=== PATIENT | female | born 1935 | race Caucasian/White ===

== ENCOUNTER 2017-02-02 15:16 | Emergency (ER) | payer MEDICARE | END 2017-02-02 23:20 | disposition home or self-care (01) | LOC: D.ER 15:16 | DX: S01.81XA Laceration without foreign body of other part of head, initial encounter (principal); W01.0XXA Fall on same level from slipping, tripping and stumbling without subsequent striking against object, initial encounter; Y93.89 Activity, other specified; Y92.129 Unspecified place in nursing home as the place of occurrence of the external cause; S63.91XA Sprain of unspecified part of right wrist and hand, initial encounter; S16.1XXA Strain of muscle, fascia and tendon at neck level, initial encounter; E03.9 Hypothyroidism, unspecified; F43.9 Reaction to severe stress, unspecified; F32.9 Major depressive disorder, single episode, unspecified; F41.9 Anxiety disorder, unspecified ==

== ENCOUNTER 2017-02-07 13:08 | Emergency (ER) | payer MEDICARE | END 2017-02-07 15:02 | disposition home or self-care (01) | LOC: D.ER 13:08 | DX: M25.462 Effusion, left knee (principal); W19.XXXA Unspecified fall, initial encounter; Y93.89 Activity, other specified; Y92.129 Unspecified place in nursing home as the place of occurrence of the external cause; F41.9 Anxiety disorder, unspecified; F32.9 Major depressive disorder, single episode, unspecified; E03.9 Hypothyroidism, unspecified; F43.9 Reaction to severe stress, unspecified ==

== ENCOUNTER → 2017-02-10 15:43 | Outpatient (CLI) | payer MEDICARE | END | disposition home or self-care (01) | LOC: D.RAD 15:43 | DX: M79.605 Pain in left leg (principal); W19.XXXD Unspecified fall, subsequent encounter ==

== ENCOUNTER 2017-10-30 12:35 | Inpatient (IN) | payer MEDICARE ==
[~2017-10-30] VITALS: Ht 160 cm; Wt 52.3 kg
--- NOTE | ~2017-10-30 | OP ---
PATIENT NAME: ALEKSANDRA REYES MEDICAL RECORD: [id number] :35 LOCATION:[id number] ADMISSION DATE:10/30/17 SURGEON: SIRENA ARELLANO MD DATE OF OPERATION: 11/03/2017 PREOPERATIVE DIAGNOSIS: Fracture, comminuted, right patella. POSTOPERATIVE DIAGNOSIS: Fracture, comminuted, right patella. PROCEDURE: Right patellectomy. SURGEON: Sirena Arellano MD ANESTHESIA: General. INTRAOPERATIVE COMPLICATIONS: Essentially none. SUMMARY OF PATHOLOGIC FINDINGS: The patient had a multi-fragmented osteoporotic patella with 3 screws already in it that had broken through and caused significant damage. Reapproximation of this patella was not possible given the patient's osteoporosis and this is the third time she has fractured it. Decision was made to proceed with patellectomy rather than try to repair this very fragile patella in this 82-year-old patient. OPERATIVE SUMMARY IN DETAIL: After obtaining the appropriate preoperative orthopedic surgery consent as well as anesthetic consultation, evaluation and clearance, the patient was brought to the operating room and placed on the operating table in supine position. After general laryngeal mask was administered, tourniquet was placed on the proximal aspect of the right lower extremity. Right lower extremity was then prepped and draped in routine sterile fashion. The leg was elevated and exsanguinated, and tourniquet was inflated to 350 mmHg. Routine midline incision was used again. This was taken down to the level of the patella. The fragments were by approximately 2 cm with split fragments both top and bottom. Initial attempts at trying to clean out the interposed soft tissue resulted in more fragmentation. At this point, the decision was made to proceed with a patellectomy. The patella was completely excised using a Bovie maintaining as much of the quadriceps tendon and surrounding patellar periosteum. The inferior patella was taken out as well as the superior patella and multiple fragments were taken out and removed and sent to pathology for gross only. These were also sent with the previously placed screws were in there. All previously placed FiberWire that was in there was also taken out. At this point, the knee was irrigated and the quadriceps tendon to the patellar tendon were closed using #2 FiberWire. At one point, a modified Meza loop was used to reapproximate the inferior to the superior. The knee was flexed to be sure that the construct would hold tight as it did. Having completed this, the skin was closed with 0 Vicryl followed by skin giovanni. Sterile dressings were applied. Tourniquet was deflated. The patient was awakened and taken to the recovery room in stable condition. All final needle and sponge counts were correct. TRANSINT:[id number] Voice Confirmation ID: [id number] DOCUMENT ID: [id number] OPERATIVE REPORT [id number] ALEKSANDRA REYES MD, SIRENA CABELLO at 1751 CC: [id number] DICTATION DATE: 11/03/17 1417 NURSE FIRST ASSIST: 11/03/17 1625 ADM IN [facility] [address] [id number]
[2017-10-30 15:56] LABS: BASOPHILS 0.2 % (0-2); EOSINOPHILS 1.8 % (0-7); HEMATOCRIT 37.8 % (36.0-48.0); HEMOGLOBIN 11.8 g/dL (12-16); IMMATURE GRANULOCYTES 0.4 % (0-5); LYMPHOCYTES 30.8 % (15-50); MCH 28.9 pg (26.0-34.0); MCHC 31.2 g/dL (31.0-37.0); MCV 92.6 fL (80.0-100.0); MEAN PLATELET VOLUME 11.8 fL (7.4-10.4); MONOCYTES 8.3 % (2-11); NEUTROPHILS 58.5 % (40-80); PLATELET COUNT 241 10x3/uL (130-400); RBC 4.08 10x6/uL (4.00-5.40); RDW 13.9 % (11.5-14.5); WBC 5.5 10x3/uL (4.8-10.8)
[2017-10-30 16:05] LABS: INR 0.95 (0.85-1.17); PROTIME 12.3 SECONDS (11.6-15.0)
[2017-10-30 16:16] LABS: ALBUMIN 3.5 g/dL (3.4-5.0); ANION GAP 11.1 mmol/L (8-16); BILIRUBIN - TOTAL 0.32 mg/dL (0.2-1.3); CALCIUM 9.2 mg/dL (8.5-10.1); CARBON DIOXIDE 32.4 mmol/L (21.0-32.0); POTASSIUM - SERUM 3.5 mmol/L (3.5-5.1); PROTEIN - SERUM 7.2 g/dL (6.4-8.2)
[2017-10-30] MEDS ORDERED: ASPIRIN81 MG PO (22:44)
[2017-10-30] MEDS ORDERED: CALCIUM 600+D T1 TA1 PO (22:45)
[2017-10-30] MEDS ORDERED: CARDIZEM120 MG PO (22:46)
[2017-10-30] MEDS ORDERED: FERROUS SULFAT325 MG PO (22:47)
[2017-10-30] MEDS ORDERED: EXELON1 PATCH .1 TRANSDERM (22:47)
[2017-10-30] MEDS ORDERED: FISH OIL 1,0001 CA1 PO (22:48)
[2017-10-30] MEDS ORDERED: K-DUR20 MEQ PO (22:48)
[2017-10-30] MEDS ORDERED: LEVOTHYROXINE50 MCG PO (22:49)
[2017-10-30] MEDS ORDERED: PROMOD LIQUID P30 M1 PO (22:49)
[2017-10-30] MEDS ORDERED: VITAMIN B-12500 MC1 PO (22:50)
[2017-10-30] MEDS ORDERED: VITAMIN D31000 UNIT PO (22:50)
[2017-10-30] MEDS ORDERED: METOLAZONE5 MG PO (22:51)
[2017-10-30] MEDS ORDERED: LEXAPRO10 MG PO (22:51)
[2017-10-30] MEDS ORDERED: ATIVAN0.5 MG PO (22:51)
[2017-10-30] MEDS ORDERED: SEROQUEL25 MG PO (22:51)
[2017-10-30] MEDS ORDERED: ACETAMINOPHEN325 MG PO (22:52)
[2017-10-30] MEDS ORDERED: DULCOLAX10 MG/SUPP RC (22:52)
[2017-10-30 23:58] VITALS: BP 112/47
[2017-10-31] VITALS (7 sets, daily range): BP systolic 98–143; BP diastolic 40–72; Ht 160 cm; Wt 52.3 kg
[2017-11-01 04:17] VITALS: BP 102/36
[2017-11-01 09:41] VITALS: BP 96/64
[2017-11-01 12:14] VITALS: BP 96/36
[2017-11-01 19:57] VITALS: BP 113/41
[2017-11-02] VITALS: BP 107/44
[2017-11-02 04:00] VITALS: BP 111/47
[2017-11-02 06:00] LABS: HEMATOCRIT 34.5 % (36.0-48.0); HEMOGLOBIN 10.6 g/dL (12-16); MCH 28.4 pg (26.0-34.0); MCHC 30.7 g/dL (31.0-37.0); MCV 92.5 fL (80.0-100.0); RBC 3.73 10x6/uL (4.00-5.40); RDW 13.9 % (11.5-14.5); WBC 6.8 10x3/uL (4.8-10.8)
[2017-11-02 06:11] LABS: ANION GAP 8.3 mmol/L (8-16); CALCIUM 8.1 mg/dL (8.5-10.1); CARBON DIOXIDE 30.6 mmol/L (21.0-32.0); POTASSIUM - SERUM 3.9 mmol/L (3.5-5.1)
[2017-11-02 10:28] VITALS: BP 112/52
[2017-11-02 21:35] VITALS: BP 112/42
[2017-11-02 23:22] VITALS: BP 117/44
[2017-11-03 04:52] VITALS: BP 117/39
[2017-11-03 09:22] VITALS: BP 107/41
[2017-11-03 15:06] VITALS: BP 106/54
[2017-11-03 23:00] VITALS: BP 101/58
[2017-11-04 01:29] VITALS: BP 138/64
[2017-11-04 04:59] VITALS: BP 116/60
[2017-11-04 08:28] VITALS: BP 138/71
[2017-11-04 10:17] LABS: HEMATOCRIT 33.1 % (36.0-48.0); HEMOGLOBIN 10.6 g/dL (12-16)
[2017-11-04] MEDS ORDERED: ELIQUIS2.5 MG PO (10:19)
[2017-11-04] MEDS ORDERED: PERCOCET 5-3251 TAB PO (10:21)
[2017-11-04 12:08] VITALS: BP 128/68
== END 2017-11-04 17:26 | DRG 488 ==
LOC: D.ER 12:35 → D.MS 21:35
PROVIDERS: Nurse Practitioner Family; Orthopaedic Surgery
PROC: 0QTD0ZZ Resection of Right Patella, Open Approach (ICD-10-PCS; principal; 2017-11-03 14:00)
DX: S82.041A Displaced comminuted fracture of right patella, initial encounter for closed fracture (principal); F02.81 Dementia in other diseases classified elsewhere, unspecified severity, with behavioral disturbance; X58.XXXA Exposure to other specified factors, initial encounter; T84.12 Displacement of internal fixation device of bones of limb; Y83.8 Other surgical procedures as the cause of abnormal reaction of the patient, or of later complication, without mention of misadventure at the time of the procedure; Z66 Do not resuscitate; G30.9 Alzheimer's disease, unspecified; M81.0 Age-related osteoporosis without current pathological fracture; D50.9 Iron deficiency anemia, unspecified; I12.9 Hypertensive chronic kidney disease with stage 1 through stage 4 chronic kidney disease, or unspecified chronic kidney disease; N18.9 Chronic kidney disease, unspecified; E03.9 Hypothyroidism, unspecified; E53.8 Deficiency of other specified B group vitamins; M19.90 Unspecified osteoarthritis, unspecified site; F41.8 Other specified anxiety disorders; J44.9 Chronic obstructive pulmonary disease, unspecified; K21.9 Gastro-esophageal reflux disease without esophagitis; K59.00 Constipation, unspecified